=== PATIENT | female | born 1990 | race Caucasian/White ===

== ENCOUNTER → 2020-06-18 | Outpatient (CLI) | payer BC ==
--- NOTE | 2020-06-18 11:24 | REP ---
INDICATION: ANATOMY. COMPARISON: None. TECHNIQUE: Multiple ultrasound images of the gravid uterus FINDINGS: There is a single intrauterine gestation in a cephalic presentation. The placenta is anterior with grade 1 maturity. There is no placenta previa. The placental cord insertion is located centrally on the placenta. There is a normal 3 vessel cord. The cervix measures 3.7 cm length. heart rate is 153 beats per minute. Subjectively the amniotic fluid volume is normal. Composite ultrasound gestational age is 24 weeks 1 day with an TRAN of 10/07/2020. The LMP is unknown. Estimated weight is 663 g/1 lb, 7 oz. This is the 61st percentile for 23 weeks 3 days. The following anatomic structures are identified and are unremarkable: Cranium, cavum septum pellucidum, falx, intracranial ventricles, choroid plexus, cerebellum, cisterna magna, facial profile, upper lip, cardiac rhythm, four-chamber heart, cardiac right left ventricular outflow tracts, diaphragm, stomach, abdominal wall, right and left kidneys, bladder, spine, right and left upper extremities, right left lower extremities, 3 vessel cord. IMPRESSION: No anomalies are identified. <Electronically signed by Ash Thomas > 06/18/20 [id number]
== END ==
LOC: M WHC 09:04
PROVIDERS: ATTEND Advanced Practice Midwife
DX: O34.211 Maternal care for low transverse scar from previous cesarean delivery (principal); Z3A.24 24 weeks gestation of pregnancy

== ENCOUNTER → 2020-07-02 | Outpatient (REF) | payer BC ==
[2020-07-02 17:43] LABS: HEMATOCRIT 33.9 % (36.0-47.0); HEMOGLOBIN 10.4 g/dl (12.0-15.5); MEAN CORPUSCULAR HEMOGLOBIN 30.2 pg (27.0-33.0); MEAN CORPUSCULAR HGB CONC 30.7 g/dl (32.0-36.5); MEAN CORPUSCULAR VOLUME 98.5 fl (80.0-96.0); PLATELET COUNT, AUTOMATED 197 10^3/uL (150-450); RED BLOOD COUNT 3.44 10^6/uL (4.00-5.40); WHITE BLOOD COUNT 10.8 10^3/uL (4.0-10.0)
== END ==
LOC: M PLALAB 15:00
PROVIDERS: ATTEND Advanced Practice Midwife
DX: O34.211 Maternal care for low transverse scar from previous cesarean delivery (principal)

== ENCOUNTER → 2020-09-10 | Outpatient (REF) | payer BC | LOC: M SFHCWAGY 16:47 | PROVIDERS: ATTEND Obstetrics & Gynecology | DX: Z36.89 Encounter for other specified antenatal screening (principal); Z3A.35 35 weeks gestation of pregnancy ==

== ENCOUNTER → 2020-09-10 | Outpatient (REF) | payer BC | LOC: M PLALAB 12:36 | PROVIDERS: ATTEND Obstetrics & Gynecology | DX: Z36.89 Encounter for other specified antenatal screening (principal); Z3A.35 35 weeks gestation of pregnancy ==

== ENCOUNTER 2020-09-20 13:45 | Outpatient (CLI) | payer BC ==
[~2020-09-20] VITALS: Ht 167.6 cm; Wt 94.2 kg
[2020-09-20] MEDS ORDERED: FERR325T82 PO (14:00)
[2020-09-20] MEDS ORDERED: PRENTAB9 PO (14:00)
[2020-09-20] MEDS ORDERED: LACTATED RINGER'S 1000 ML IV ONE (14:20)
[2020-09-20 14:23] VITALS: BP 113/56
[2020-09-20] MEDS: LR 1,000 ML IV SCH ×2 (15:49→18:16)
[2020-09-20 16:10] VITALS: BP 120/61
[2020-09-20 18:01] VITALS: BP 138/86
[2020-09-20 19:12] VITALS: BP 124/68
--- NOTE | 2020-09-20 20:11 | REP ---
INDICATION: oligohydramnios. COMPARISON: None applicable TECHNIQUE: Transabdominal FINDINGS: Multiple ultrasonographic images of the gravid uterus show a single living intrauterine gestation in the cephalic presentation. The placenta is anterior and not low-lying. The cervix measures 5.3 cm length and is closed. Doppler interrogation of the heart is a heart rate of 133 beats per minute. The subjective amniotic fluid volume is within normal limits the calculated amniotic fluid index is 8.7 no range was given. biophysical profile score is 2 for breathing, 2 for movement, 2 for tone, and 2 for amniotic fluid volume giving a sum total of 8/8. IMPRESSION: Limited OB ultrasound as described above <Electronically signed by Cliff Briones > 09/20/202006
--- NOTE | 2020-09-20 20:36 | IPNPDOC ---
Text Note Date of Service The patient was seen on 09/20/20. NOTE Outpatient 29yo TRAN 10/10/2020. Presents @ 37wks for hydration and monitoring due to incidental oligohydramnios found on growth sono. ESTEFANÍA 1. No distress. Denies LOF, bleeding. Reports good movement Cat I tracing IV and oral fluids provided BPP 11/10 with followup ESTEFANÍA 8.7 [address] home. Routine instructions. Ordered f/u BPP with ESTEFANÍA for next week. Keep appt next week VS,Fishbone, I+O VS, Fishbone, I+O Vital Signs Date Time Temp Pulse Resp B/P (MAP) Pulse Ox O2 Delivery O2 Flow Rate FiO2 09/20/20 19:12 97.9 90 18 124/68 (86) Lisa Ron CNM Sep 20, 2020 20:36
== END 2020-09-20 20:40 | disposition home or self-care (01) ==
LOC: M LDO 13:45
PROVIDERS: ATTEND Advanced Practice Midwife
DX: O41.03X0 Oligohydramnios, third trimester, not applicable or unspecified (principal); Z3A.37 37 weeks gestation of pregnancy; Z88.0 Allergy status to penicillin; Z79.899 Other long term (current) drug therapy
CPT/HCPCS: 59025; 76819; 96360; 96361; G0378; G0463

== ENCOUNTER → 2020-09-20 | Outpatient (CLI) | payer BC ==
[~2020-09-20] MED LIST: FERR325T82 PO; PRENTAB9 PO
--- NOTE | 2020-09-20 13:53 | REP ---
INDICATION: GROWTH. COMPARISON: 06/18/2020. TECHNIQUE: Real-time sonographic evaluation of the gravid uterus performed. FINDINGS: Estimated gestational age is37 weeks 1 day, EDC 10/10/2020. Today's measurements indicate appropriate growth. Presentation: Cephalic Placenta like anterior, grade 2, without evidence of placenta previa. heart rate is recorded at 130 beats per minute. Amniotic fluid is oligohydramnios. ESTEFANÍA 1.0, normal range 7.5-24.3. Biometry chart: BPD: 93 mm, 37 weeks 4 days, 56th percentile. HC: 336 mm, 38 weeks 4 days, 73rd percentile AC: 335 mm, 37 weeks 3 days, 54th percentile Femur length: 72 mm, 36 weeks 6 days, 46th percentile HC to AC ratio: 1.00, normal range 0.91-1.10. Estimated weight: 3210g, 65th percentile. SD ratio umbilical artery 2.26, normal 1.58-3.42. RI 0.56, normal 0.43-0.70. IMPRESSION: Viable single intrauterine gestation as above. Appropriate growth. Oligohydramnios. <Electronically signed by Ash Lee > 09/20/20 [id number]
== END ==
LOC: M WHC 12:43
PROVIDERS: ATTEND Obstetrics & Gynecology
DX: Z36.89 Encounter for other specified antenatal screening (principal); Z3A.35 35 weeks gestation of pregnancy

== ENCOUNTER → 2020-10-03 | Outpatient (CLI) | payer BC | LOC: M LABSMTC 11:26 | PROVIDERS: ATTEND Specialist | DX: Z11.52 Encounter for screening for COVID-19 (principal) ==

== ENCOUNTER → 2020-10-10 | Outpatient (CLI) | payer BC | LOC: M LABSMTC 11:28 | PROVIDERS: ATTEND Specialist | DX: Z11.52 Encounter for screening for COVID-19 (principal) ==

== ENCOUNTER 2020-10-13 23:27 | Inpatient (IN) | payer BC ==
[~2020-10-13] VITALS: Ht 167.6 cm; Wt 95.6 kg
[2020-10-13 23:48] VITALS: BP 126/77
[2020-10-13] MEDS ORDERED: ACET325C5 PO (23:52)
[2020-10-14] VITALS (11 sets, daily range): BP systolic 105–133; BP diastolic 57–70
[2020-10-14 00:28] LABS: MEAN CORPUSCULAR HEMOGLOBIN 29.2 pg (27.0-33.0); MEAN CORPUSCULAR HGB CONC 33.3 g/dl (32.0-36.5); MEAN CORPUSCULAR VOLUME 87.6 fl (80.0-96.0); PLATELET COUNT, AUTOMATED 249 10^3/uL (150-450); RED BLOOD COUNT 4.11 10^6/uL (4.00-5.40); WHITE BLOOD COUNT 12.6 10^3/uL (4.0-10.0)
[2020-10-14] MEDS ORDERED: OXYTOCIN 30 UNITS IN 0.9% NaCl 500ML IV BAG (J2590) As Ordered ONE (02:47)
[2020-10-14] MEDS ORDERED: LIDOCAINE 1% MDV 20ML VIAL As Ordered ONE (03:53)
[2020-10-14] MEDS ORDERED: ACETAMINOPHEN TAB 650MG DOSE (2X325MG) PO PRN (04:25)
[2020-10-14] MEDS ORDERED: RHOGAM 300 MCG (1500 IU) INJ (J2790) IM SCH (04:25)
[2020-10-14] MEDS ORDERED: METHYLERGONOVINE MALEATE 0.2 MG TAB PO PRN (04:25)
[2020-10-14] MEDS ORDERED: MEASLES,MUMPS,RUBELLA VACCINE INJ (MMR-II) (90707) SC SCH (04:25)
[2020-10-14] MEDS ORDERED: ACETAMINOPHEN 500 MG TAB PO PRN (04:25)
[2020-10-14] MEDS ORDERED: IBUPROFEN 600MG TAB PO PRN (04:25)
[2020-10-14] MEDS ORDERED: OXYTOCIN DRIP 30 UNITS in IV 1 EA IV SCH (04:25)
[2020-10-14] MEDS ORDERED: IBUPROFEN 800 MG TAB PO PRN (04:25)
[2020-10-14] MEDS ORDERED: DOCUSATE SODIUM 100MG CAPSULE PO PRN (04:25)
--- NOTE | 2020-10-14 04:28 | HPEPDOC ---
Obstetrical History & Physical General Date of Admission Oct 14, 2020 at 00:01 History of Present Illness 29-year-old 2 para 1 who presents at 40 weeks 4 days estimated gestational age with complaints of leakage of clear fluid.'s occurred approximately 3 hours before admission and was clear. She denies any vaginal bleeding. She is complaints of regular contractions. Her course unremarkable she transferred care second trimester. Her history is significant for prior section and she desires a trial labor after section after counseling. Chief Complaint: Contractions, term, Rupture of membranes Information Provided By: Patient Age: 29 : 2 Livin Care Care: Good Care Dating Final EDC: Oct 10, 2020 Final EDC by: LMP EGA at Admission: 40 Past Medical History Past Obstetrical History : Date of Delivery: Sep 29, 2015 Type of Delivery: Ceserean section Sex of : Male Complications: No Past Medical History Surgical History: section Family History Significant Family History: No pertinent family hx Social History Marital Status: Family situation: Spouse/partner home Psychosocial History: No pertinent psych hx * Smoker: non-smoker Alcohol: Denies Drugs: denies Allergies Coded Allergies: Penicillins (Verified Allergy, Severe, rash, 09/20/20) Medications Scheduled Ferrous Sulfate (Iron) 325 Mg Tablet, 325 MG PO DAILY No.137/Iron/Folic Acd ( Vitamin Tablet) 1 Each Tablet, 1 TAB PO DAILY Miscellaneous Medications Acetaminophen (Tylenol) 325 Mg Capsule, 650 MG PO Physical Examination Physical Examination GENERAL: Alert and oriented times three. BREAST: . ABDOMEN: Gravid and non-tender to touch. FETUS: Is vertex (VTX) by sterile vaginal examination (SVE), fetus is vertex (VTX) by Brad. HEART RATE: Regular rate and rhythm. LUNGS: Clear to auscultation (CTA). Vital Signs/I&O Vital Signs Date Time Temp Pulse Resp B/P (MAP) Pulse Ox O2 Delivery O2 Flow Rate FiO2 10/13/20 23:48 99.0 18 126/77 (93) Laboratory Data 24H LABS Laboratory Tests 2 10/14/20 00:06: Serology Scanned Report Hepatitis B Testing 10/14/20 00:11: Nucleated Red Blood Cells % (auto) 0.0 CBC/BMP Laboratory Tests 10/14/20 00:11 Pertinent Laboratoy Data Blood Type: A+ RBC Antibody Screen: Negative HIV: Negative Hepatitis B: Negative Rapid Plasma Reagin: Nonreactive Rubella: Immune Group B Streptococcus: Negative Vaginal Examination Dilation: 4 cm Effacement: 80% Station: -2 Cervical Consistency: Soft Presentation: Cephalic presentation (grossly rupture of membranes) Assessment Variability: Moderate Tocometer Contractions: Yes Frequency: regular Assessment/Plan Assessment 29-year-old 2 para 1 at 40 weeks for reassessment gestational age with spontaneous rupture of membranes Reassuring status History of prior sectiondesires trial labor after section Plan Admit and orient. Manufacturing Technician and consent. Group B Streptococcus (GBS) negative. Labs and intravenous (IV) per unit protocol. Counseled on Pitocin and induction of labor (IOL). Anticipate vaginal after section/. C-S as appropriate. ABBIE BURNS MD. Oct 14, 2020 04:28
--- NOTE | 2020-10-14 04:31 | DNPDOC ---
[facility] Delivery Note Delivery Note DATE OF DELIVERY: 10/14/2020 TIME OF : 0350 GENDER: Female APGARS: 9 and 9. WEIGHT: 3860 grams or 8 pounds 8ounces. LACERATIONS: 1MLL ANESTHESIA: none ESTIMATED BLOOD LOSS: 200 ml COUNTS: 5 laparotomy sponges accounted for prior to after delivery. 3 sharps removed from delivery field. DELIVERY NOTE: On 10/14/2020 Mrs. Swanson a 29-year-old 2 now para 2 had a vaginal after section(), of a liveborn female infant Apgars 9 and 9 weight was 3860 g 8 lbs. 8 oz. Head was delivered occiput posterior (OP), followed by delivery of the shoulders and corpus. Infant was handed to mom with a good cry. Cord was clamped times two and was cut by support person under my direction. Placenta was then drained and delivered grossly intact. A premixed bag of 500 mL of normal saline with 30 units of Pitocin was then bolused along with uterine massage until the uterus was firm. On inspection there was a 1MLL that was repaired with 3-0 Vicryl after infusion with 1% lidocaine. On reinspection, cervix, vagina, perineum was grossly intact and hemostatic. Mom and baby in recovery on stable condition. Couples decided to name the daughter ABBIE Corona MD. Oct 14, 2020 04:31
[2020-10-14] MEDS ORDERED: LIDOCAINE 1% MDV 20ML VIAL SC ONE (05:45)
[2020-10-14] MEDS: PRENATAL VITAMINS CHEWABLE TABLET PO SCH (08:42)
[2020-10-15 06:00] VITALS: BP 120/75
[2020-10-15] MEDS: PRENATAL VITAMINS CHEWABLE TABLET PO SCH (08:14)
[2020-10-15] MEDS ORDERED: ACET-683 PO (12:02)
[2020-10-15] MEDS ORDERED: IBUP80TA PO (12:02)
== END 2020-10-15 14:45 | disposition home or self-care (01) | DRG 560 ==
LOC: M LDO 23:27 → M LDI 10-14 00:01 → M OBS 10-14 05:50
PROVIDERS: ADMIT Obstetrics & Gynecology; ATTEND Obstetrics & Gynecology
PROC: 10E0XZZ Delivery of Products of Conception, External Approach (ICD-10-PCS; principal; 2020-10-14)
PROC: 0HQ9XZZ Repair Perineum Skin, External Approach (ICD-10-PCS; 2020-10-14)
DX: O48.0 Post-term pregnancy (principal); Z3A.40 40 weeks gestation of pregnancy; Z37.0 Single live birth; O34.219 Maternal care for unspecified type scar from previous cesarean delivery; O70.0 First degree perineal laceration during delivery

== ENCOUNTER → 2023-12-13 | Outpatient (REF) | payer BC ==
[~2023-12-13] MED LIST changes: +ACET-683 PO; +ACET325C5 PO; +IBUP80TA PO
== END ==
LOC: M SFHCWAGY 17:09
PROVIDERS: ATTEND Specialist
DX: Z34.83 Encounter for supervision of other normal pregnancy, third trimester (principal); Z3A.36 36 weeks gestation of pregnancy

== ENCOUNTER 2024-01-01 22:03 | Inpatient (IN) | payer BC ==
[~2024-01-01] VITALS: Ht 167.6 cm; Wt 98.1 kg
[2024-01-01] MEDS ORDERED: CARBOPROST TROMETHAMINE 250 MCG/ML AMP IM PRN (22:55)
[2024-01-01] MEDS: LACTATED RINGER'S 1000 ML IV STA (22:55)
[2024-01-01] MEDS ORDERED: TRANEXAMIC ACID INJection 1,000 MG in NS 100 ML IV PRN (22:55)
[2024-01-01 22:58] VITALS: BP 115/62; O2SAT 98
[2024-01-01] MEDS ORDERED: OXYTOCIN DRIP 30 UNITS in IV 1 EA IV SCH (23:10)
[2024-01-01 23:25] LABS: HEMOGLOBIN 11.4 g/dl (12.0-15.5); MEAN CORPUSCULAR HEMOGLOBIN 29.8 pg (27.0-33.0); MEAN CORPUSCULAR HGB CONC 33.5 g/dl (32.0-36.5); MEAN CORPUSCULAR VOLUME 88.8 fl (80.0-96.0); PLATELET COUNT, AUTOMATED 198 10^3/uL (150-450); RED BLOOD COUNT 3.83 10^6/uL (4.00-5.40); WHITE BLOOD COUNT 9.1 10^3/uL (4.0-10.0)
[2024-01-02] VITALS (12 sets, daily range): BP systolic 107–126; BP diastolic 55–77; O2SAT 98–100
[2024-01-02 00:25] LABS: HEPATITIS C VIRUS ABY INDEX 0.04 INDEX (<0.8)
[2024-01-02] MEDS: OXYTOCIN DRIP 30 UNITS in IV 1 EA IV PRN (03:25)
[2024-01-02] MEDS: LIDOCAINE 1% MDV 20ML VIAL INFIL PRN (03:35)
[2024-01-02] MEDS ORDERED: CALCIUM CARBONATE 500 MG CHEW U/D PO PRN (03:45)
[2024-01-02] MEDS ORDERED: ANUSOL HC CREAM 30GM TOP PRN (03:45)
[2024-01-02] MEDS ORDERED: ONDANSETRON 4MG 2ML VIAL IV PRN (03:45)
[2024-01-02] MEDS ORDERED: ACETAMINOPHEN TAB 650MG DOSE (2X325MG) PO PRN (03:45)
[2024-01-02] MEDS: METHYLERGONOVINE MALEATE 0.2MG/ML 1ML VIAL IM PRN (05:04)
[2024-01-02] MEDS: OXYTOCIN DRIP 30 UNITS in IV 1 EA IV SCH (05:16)
[2024-01-02] MEDS: IBUPROFEN 600MG TAB PO PRN (05:21)
[2024-01-02] MEDS: PRENATAL VITAMINS CHEWABLE TABLET PO SCH (09:30)
[2024-01-02] MEDS: DIBUCAINE 1% OINTMENT 30GM TOP PRN (09:44)
[2024-01-03 06:14] VITALS: BP 124/77; O2SAT 98
[2024-01-03] MEDS: DOCUSATE SODIUM 100MG CAPSULE PO PRN (07:56)
[2024-01-03 18:30] VITALS: BP 142/84; O2SAT 98
[2024-01-03 18:40] VITALS: BP 110/73
[2024-01-03] MEDS: ACETAMINOPHEN 500 MG TAB PO PRN (20:12)
[2024-01-04] MEDS: IBUPROFEN 800 MG TAB PO PRN (02:02)
[2024-01-04 06:00] VITALS: BP 118/82; O2SAT 98
[2024-01-04] MEDS: MEASLES,MUMPS,RUBELLA VACCINE INJ (MMR-II) SC.IMMUN ONE (07:36)
[2024-01-04] MEDS: RHO(D) IMMUNE GLOBULIN/MALTOSE 500MCG(2500IU)/2.2ML VIAL (WINRHO) IM SCH (07:36)
[2024-01-04] MEDS ORDERED: HOME MED LIST COMPLETE! XX SCH (10:20)
[2024-01-04 18:00] VITALS: BP 109/68; O2SAT 100
== END 2024-01-04 18:33 | disposition home or self-care (01) | DRG 560 ==
LOC: M LDO 22:03 → M LDI 22:54 → M OBS 01-02 06:22
PROVIDERS: ADMIT Obstetrics & Gynecology; ATTEND Obstetrics & Gynecology
PROC: 10E0XZZ Delivery of Products of Conception, External Approach (ICD-10-PCS; principal; 2024-01-02)
PROC: 0HQ9XZZ Repair Perineum Skin, External Approach (ICD-10-PCS; 2024-01-02)
DX: O34.211 Maternal care for low transverse scar from previous cesarean delivery (principal); O70.0 First degree perineal laceration during delivery; Z3A.39 39 weeks gestation of pregnancy; Z37.0 Single live birth